=== PATIENT | male | born 1965 | race Caucasian/White ===

== ENCOUNTER → 2018-06-10 | Outpatient (CLI) | payer OTHER ==
[~2018-06-10] MED LIST: ALLO100T70 PO; AMI25 PO; AMIT-104 PO; AMOX-559 PO; ASPI-757 PO; CLON-393 PO; DESV50TA9 PO; HCTZ25 PO; HYDR-2966 PO; IBU800 PO; LISI-347 PO; LISI20TA29 PO; LOR5 PO; LOR5/325 PO; NAPR220C11 PO; PAL3PT PO; PRA20 PO; STATIN; [UNRECOGNIZED DRUG - CODE] PO; [UNRECOGNIZED DRUG - OTHER]
--- NOTE | 2018-06-10 15:48 | RADIOLOGY IMAGING REPORT ---
FACILITY: [facility] PATIENT NAME: Hank Cartagena : 1965 MR: [id number] V: [id number] EXAM DATE: ORDERING PHYSICIAN: SARA GRAY TECHNOLOGIST: Location: [facility] Patient: Hank Cartagena : 1965 Visit/Account:[id number] Date of Sevice: 06/10/2018 Study: HIPS BILATERAL Indication: Bilateral hip pain Comparison study: None available Findings: AP view the pelvis and bilateral frog-leg views of the hips demonstrates no evidence of acu te bony abnormality. There is no evidence of lytic or blastic bony lesions. There is no significant degenerative disease of the hip joints. The femoral heads and necks are unremarkable bilaterally. There is no evidence of abnormality of the visualized soft tissues. IMPRESSION: Unremarkable exam Report Dictated By: Lee Olsen at 06/10/2018 3:42 PM Report E-Signed By: Lee Olsen at 06/10/2018 3:42 PM WSN:[email or web address]
--- NOTE | 2018-06-10 17:38 | RADIOLOGY IMAGING REPORT ---
FACILITY: [facility] PATIENT NAME: Hank Cartagena : 1965 MR: [id number] V: [id number] EXAM DATE: ORDERING PHYSICIAN: SARA GRAY TECHNOLOGIST: Location: [facility] [place] Patient: Hank Cartagena : 1965 Visit/Account:[id number] Date of Sevice: 06/10/2018 Exam type: L-SPINE 2 OR 3 VIEW History: Bilateral hip pain low back pain radiating down anterior sides of the thighs Comparison: None. Findings: There are five nonrib-bearing lumbar-type vertebral bodies present. Is a minimal levoconvex scoliosi s seen. There is moderate disc space narrowing at L3-4 L4-5 and L5-S1. There is a 1.7 cm anterior l isthesis of L5 with respect S1. Pars defects are suspected although oblique views were not obtained. Incidentally noted are spondylotic changes at T11-12 IMPRESSION: 1. Moderate spondylotic changes from L3 to S1 1.7 cm anterolisthesis of L5 with respect to S1. Pars defects are suspected although oblique views w ere not obtained Report Dictated By: Jadyn Wood MD at 06/10/2018 5:30 PM Report E-Signed By: Jadyn Wood MD at 06/10/2018 5:33 PM WSN:[email or web address]
== END ==
LOC: RAD 14:29
PROVIDERS: ATTEND Family Medicine
DX: M47.897 Other spondylosis, lumbosacral region (principal)
CPT/HCPCS: 72100; 73522